=== PATIENT | female | born 1990 | race Caucasian/White ===

== ENCOUNTER 2017-09-12 15:55 | Emergency (ER) | payer BC ==
[2017-09-12 17:16] LABS: BASO % 0 % (0-3); EOS # 0.2 x10^3/uL (0.0-0.7); EOS % 1 % (0-3); HEMATOCRIT 31.9 % (36.0-47.0); HEMOGLOBIN 9.8 g/dL (12.0-15.5); LYMPH # 1.1 x10^3/uL (1.0-4.8); LYMPH % 9 % (24-48); MEAN CORPUSCULAR HEMOGLOBIN 21 pg (25-35); MEAN CORPUSCULAR HGB CONC 31 g/dL (31-37); MEAN CORPUSCULAR VOLUME 67 fL (79-100); MONO # 0.5 x10^3/uL (0.0-1.1); MONO % 4 % (0-9); NEUT # 11.3 x10^3uL (1.8-7.7); NEUT % 86 % (31-73); PLATELET COUNT 413 x10^3/uL (140-400); RED BLOOD COUNT 4.77 x10^6/uL (3.50-5.40); RED CELL DISTRIBUTION WIDTH 18.9 % (11.5-14.5); WHITE BLOOD COUNT 13.2 x10^3/uL (4.0-11.0)
[2017-09-12 17:16] LABS: URINE HCG POC HCG NEGATIVE (Negative)
[2017-09-12 17:18] LABS: ADD MAN DIFF? YES
[2017-09-12 17:27] LABS: AMPHETAMINE/METHAMPHETAMINE NEG (NEG); BARBITURATES NEG (NEG); BENZODIAZEPINES NEG (NEG); CANNABINOIDS NEG (NEG); COCAINE NEG (NEG); ETHANOL, URINE NEG (NEG); METHADONE NEG (NEG); OPIATES NEG (NEG); PHENCYCLIDINE NEG (NEG)
[2017-09-12] MEDS: IV NORMAL SALINE 1000ML BAG 1,000 ML IV (17:42)
[2017-09-12 17:46] LABS: D-DIMER < 0.27 ug/mlFEU (0.00-0.50)
[2017-09-12 17:48] LABS: NEG OBC SER NEG; POS OBC SER POS; PREG TEST PT QUAL NEGATIVE (NEG)
[2017-09-12 17:49] LABS: ANION GAP 11 (6-14); BLOOD UREA NITROGEN 16 mg/dL (7-20); BUN/CREATININE RATIO 16 (6-20); CALCIUM 9.2 mg/dL (8.5-10.1); CARBON DIOXIDE 26 mmol/L (21-32); CHLORIDE 101 mmol/L (98-107); GLUCOSE 95 mg/dL (70-99); POTASSIUM 4.2 mmol/L (3.5-5.1); SODIUM 138 mmol/L (136-145)
[2017-09-12 17:54] LABS: ALBUMIN 3.8 g/dL (3.4-5.0); ALBUMIN/GLOBULIN RATIO 0.7 (1.0-1.7); ALK PHOS 88 U/L (46-116); ALT (SGPT) 19 U/L (14-59); AST (SGOT) 13 U/L (15-37); TOTAL BILIRUBIN 0.4 mg/dL (0.2-1.0); TOTAL PROTEIN 9.3 g/dL (6.4-8.2)
[2017-09-12 19:25] LABS: % BANDS 6 % (0-9); % LYMPHS 7 % (24-48); % MONOS 4 % (0-10); % SEGS 83 % (35-66)
[2017-09-12 19:26] LABS: PLT ESTIMATE ADEQUATE (ADEQUATE)
[2017-09-12 19:27] LABS: POLYCHROMASIA SLIGHT; TOXIC GRANULATION SLIGHT
== END 2017-09-12 18:58 | disposition home or self-care (01) ==
LOC: ER 15:55
DX: R55 Syncope and collapse (principal); R11.2 Nausea with vomiting, unspecified; F41.9 Anxiety disorder, unspecified; R00.2 Palpitations; R07.9 Chest pain, unspecified; F32.9 Major depressive disorder, single episode, unspecified; Z88.1 Allergy status to other antibiotic agents
CPT/HCPCS: 36415; 80053; 80307; 81025; 84703; 85007; 85025; 85379; 93005; 96360; 99285-25; J7030